=== PATIENT | male | born 1980 | race Caucasian/White ===

== ENCOUNTER 2020-06-02 14:09 | Emergency (ER) | payer SELFPAY ==
[~2020-06-02] VITALS: Ht 185.4 cm; Wt 113.4 kg
[2020-06-02 16:08] LABS: BASOPHILS ABSOLUTE AUTO 0.07 K/mm3 (0.00-0.23); BASOPHILS PERCENT AUTO 1 % (0-2); EOSINOPHILS ABSOLUTE AUTO 0.03 K/mm3 (0.00-0.68); EOSINOPHILS PERCENT AUTO 1 % (0-6); Hematocrit 42.7 % (37.0-53.0); IMMATURE GRAN ABSOLUTE AUTO 0.03 K/mm3 (0.00-0.10); IMMATURE GRAN PERCENT AUTO 1 % (0-1); LYMPHOCYTES ABSOLUTE AUTO 1.47 K/mm3 (0.84-5.20); LYMPHOCYTES PERCENT AUTO 27 % (21-46); MONOCYTES ABSOLUTE AUTO 0.52 K/mm3 (0.16-1.47); MONOCYTES PERCENT AUTO 10 % (4-13); Mean Corpuscular HGB Conc 35.1 g/dL (31.5-36.5); Mean Corpuscular Volume 97 fL (80-100); Mean Platelet Volume 9.9 fL (9.1-12.4); NEUTROPHILS ABSOLUTE AUTO 3.28 K/mm3 (1.96-9.15); NEUTROPHILS PERCENT AUTO 61 % (41-73); Platelet Count 225 K/mm3 (150-400); RDW Coefficient Variation 14.6 % (11.7-14.2); RDW Standard Deviation 52.8 fL (35.1-46.3); Red Blood Cell Count 4.41 M/mm3 (4.30-5.90)
[2020-06-02 16:37] LABS: Alanine Aminotransfer (ALT/SGP 53 U/L (12-78); Albumin, Blood 4.5 g/dL (3.4-5.0); Albumin/Globulin Ratio 1.1 (0.8-1.8); Alk Phos 78 U/L (50-136); Anion Gap 17 mmol/L (6-16); Aspartate Aminotrans (AST/SGOT 72 U/L (12-37); Bilirubin, Total 1.4 mg/dL (0.1-1.0); Blood Urea Nitrogen 9 mg/dL (8-24); Bun/Creatinine Ratio 12.3 (12.0-20.0); CO2, Blood 20 mmol/L (21-32); Calcium, Blood 9.5 mg/dL (8.5-10.1); Chloride, Blood 97 mmol/L (98-108); Creatinine, Blood 0.73 mg/dL (0.60-1.20); Globulin, Blood 4.1 g/dL (2.2-4.0); Glomerular Filtration Rate >60 (60-); Glucose, Blood 84 mg/dL (70-99); Sodium, Blood 134 mmol/L (136-145); Total Protein, Blood 8.6 g/dL (6.4-8.2)
[2020-06-02 19:41] LABS: Source, Urine Clean Catch
[2020-06-02 19:44] LABS: Appearance, Urine Clear (Clear); Bilirubin, Urine Neg (Neg); Blood, Urine 1+ (Neg); Color, Urine Yellow (P-Yellow); Glucose Qualitative, Urine Neg (Neg); Ketones, Urine 4+ (Neg); Leukocyte Esterase, Urine Neg (Neg); Nitrite, Urine Neg (Neg); Protein, Urine 2+ (Neg); Urobilinogen, Urine NORM (Normal)
[2020-06-02 20:02] LABS: Bacteria Few /hpf; Squamous Epithelial Cells Few /hpf (Few); White Blood Cells, Urine 0-2 /hpf (0-5)
[2020-06-02 20:03] LABS: Amorphous Light (0-Heavy); Mucus Light (0-Heavy); Uric Acid Crystals Few /hpf
[2020-06-07 01:09] LABS: CHLAMYDIA TRACHOMATIS, NAA Negative (Negative); NEISSERIA GONORRHOEAE, NAA Negative (Negative)
== END 2020-06-02 22:53 | disposition home or self-care (01) ==
LOC: ER 14:09
PROVIDERS: Physician Assistant
DX: K59.00 Constipation, unspecified (principal); R74.01 Elevation of levels of liver transaminase levels; Z79.899 Other long term (current) drug therapy
CPT/HCPCS: 36415; 74176; 76870; 80053; 81001; 83690; 83735; 84145; 85025; 93005; 93010; 96361; 96374; 96375; 99284-25; A9270; C9113; G0480; J1170; J2270; J2765; J7030

== ENCOUNTER 2020-06-12 08:34 | Emergency (ER) | payer OTHER ==
[~2020-06-12] VITALS: Ht 185.4 cm; Wt 113.4 kg
[2020-06-12 09:34] LABS: BASOPHILS ABSOLUTE AUTO 0.09 K/mm3 (0.00-0.23); BASOPHILS PERCENT AUTO 2 % (0-2); EOSINOPHILS ABSOLUTE AUTO 0.02 K/mm3 (0.00-0.68); EOSINOPHILS PERCENT AUTO 0 % (0-6); Hemoglobin 14.1 g/dL (13.5-17.5); IMMATURE GRAN ABSOLUTE AUTO 0.01 K/mm3 (0.00-0.10); IMMATURE GRAN PERCENT AUTO 0 % (0-1); LYMPHOCYTES ABSOLUTE AUTO 1.11 K/mm3 (0.84-5.20); LYMPHOCYTES PERCENT AUTO 24 % (21-46); MONOCYTES ABSOLUTE AUTO 0.71 K/mm3 (0.16-1.47); MONOCYTES PERCENT AUTO 16 % (4-13); Mean Corpuscular HGB 34.3 pg (26.0-34.0); Mean Corpuscular HGB Conc 35.3 g/dL (31.5-36.5); Mean Corpuscular Volume 97 fL (80-100); Mean Platelet Volume 10.2 fL (9.1-12.4); NEUTROPHILS ABSOLUTE AUTO 2.62 K/mm3 (1.96-9.15); NEUTROPHILS PERCENT AUTO 58 % (41-73); Platelet Count 195 K/mm3 (150-400); RDW Coefficient Variation 13.5 % (11.7-14.2); RDW Standard Deviation 48.7 fL (35.1-46.3); Red Blood Cell Count 4.11 M/mm3 (4.30-5.90); White Blood Cell Count 4.56 K/mm3 (4.00-11.30)
[2020-06-12 09:59] LABS: Alanine Aminotransfer (ALT/SGP 100 U/L (12-78); Albumin, Blood 3.8 g/dL (3.4-5.0); Alk Phos 79 U/L (50-136); Anion Gap 11 mmol/L (6-16); Aspartate Aminotrans (AST/SGOT 132 U/L (12-37); Blood Urea Nitrogen 3 mg/dL (8-24); Bun/Creatinine Ratio 4.1 (12.0-20.0); CO2, Blood 28 mmol/L (21-32); Calcium, Blood 8.8 mg/dL (8.5-10.1); Chloride, Blood 96 mmol/L (98-108); Creatinine, Blood 0.72 mg/dL (0.60-1.20); Globulin, Blood 3.7 g/dL (2.2-4.0); Glomerular Filtration Rate >60 (60-); Glucose, Blood 96 mg/dL (70-99); Potassium, Blood 2.9 mmol/L (3.5-5.5); Sodium, Blood 135 mmol/L (136-145); Total Protein, Blood 7.5 g/dL (6.4-8.2); Troponin I <0.015 ng/mL (0.000-0.040)
[2020-06-12 13:06] LABS: Source, Urine Clean Catch
[2020-06-12 13:13] LABS: Appearance, Urine Clear (Clear); Bilirubin, Urine Neg (Neg); Blood, Urine Neg (Neg); Color, Urine Yellow (P-Yellow); Glucose Qualitative, Urine Neg (Neg); Ketones, Urine 1+ (Neg); Leukocyte Esterase, Urine Neg (Neg); Nitrite, Urine Neg (Neg); Protein, Urine Neg (Neg); Specific Gravity, Urine 1.005 (1.003-1.022); Urobilinogen, Urine NORM (Normal)
[2020-06-12 13:25] LABS: U Amphetamine Screen Not Detected; U Barbituate Screen Not Detected; U Benzodiazapine Screen Not Detected; U Buprenorphine Screen Not Detected; U Cannabinoids Screen Not Detected; U Cocaine Screen Not Detected; U Methadone Screen Not Detected; U Methamphetamine Screen Not Detected; U Opiates Screen Not Detected; U Oxycodone Screen Not Detected; U Phencyclidine Screen Not Detected; U Propoxyphene Screen Not Detected
== END 2020-06-12 16:46 | disposition home or self-care (01) ==
LOC: ER 08:34
PROVIDERS: Physician Assistant
DX: E87.6 Hypokalemia (principal); K21.9 Gastro-esophageal reflux disease without esophagitis; F10.129 Alcohol abuse with intoxication, unspecified; F17.220 Nicotine dependence, chewing tobacco, uncomplicated; Z88.1 Allergy status to other antibiotic agents; Y90.8 Blood alcohol level of 240 mg/100 ml or more
CPT/HCPCS: 80053; 81003; 83735; 84484; 85025; 93005; 93010; 96365; 96366; 96375; 96376; 99284-25; A9270; G0480; J1885; J2060; J3480; J7030; J7120

== ENCOUNTER 2021-01-07 17:12 | Emergency (ER) | payer BC ==
[~2021-01-07] VITALS: Ht 185.4 cm; Wt 127.0 kg
[~2021-01-07 17:12] MED LIST: ALUM-MAG HYDROX30 ML PO; B-1100 M1 PO; CLON.1 PO; FOLI1 PO; Librium25 MG PO; PANT40 PO; POTA10T PO
[2021-01-07 17:45] LABS: BASOPHILS ABSOLUTE AUTO 0.09 K/mm3 (0.00-0.23); BASOPHILS PERCENT AUTO 1 % (0-2); EOSINOPHILS ABSOLUTE AUTO 0.11 K/mm3 (0.00-0.68); EOSINOPHILS PERCENT AUTO 2 % (0-6); Hematocrit 48.8 % (37.0-53.0); Hemoglobin 17.4 g/dL (13.5-17.5); IMMATURE GRAN ABSOLUTE AUTO 0.05 K/mm3 (0.00-0.10); IMMATURE GRAN PERCENT AUTO 1 % (0-1); LYMPHOCYTES ABSOLUTE AUTO 2.12 K/mm3 (0.84-5.20); LYMPHOCYTES PERCENT AUTO 31 % (21-46); MONOCYTES ABSOLUTE AUTO 0.87 K/mm3 (0.16-1.47); MONOCYTES PERCENT AUTO 13 % (4-13); Mean Corpuscular HGB 30.6 pg (26.0-34.0); Mean Corpuscular HGB Conc 35.7 g/dL (31.5-36.5); Mean Corpuscular Volume 86 fL (80-100); Mean Platelet Volume 10.9 fL (9.1-12.4); NEUTROPHILS ABSOLUTE AUTO 3.67 K/mm3 (1.96-9.15); NEUTROPHILS PERCENT AUTO 53 % (41-73); Platelet Count 198 K/mm3 (150-400); RDW Coefficient Variation 13.3 % (11.7-14.2); RDW Standard Deviation 41.8 fL (35.1-46.3); Red Blood Cell Count 5.68 M/mm3 (4.30-5.90); White Blood Cell Count 6.91 K/mm3 (4.00-11.30)
[2021-01-07 17:48] LABS: Source, Urine Clean Catch
[2021-01-07 17:58] LABS: Appearance, Urine Clear (Clear); Bilirubin, Urine Neg (Neg); Blood, Urine Neg (Neg); Color, Urine Yellow (P-Yellow); Glucose Qualitative, Urine Neg (Neg); Ketones, Urine Neg (Neg); Leukocyte Esterase, Urine 1+ (Neg); Nitrite, Urine Neg (Neg); Protein, Urine 2+ (Neg); Urobilinogen, Urine 2+ (Normal); pH, Urine 6.5 (5.0-8.0)
[2021-01-07 18:13] LABS: Red Blood Cells, Urine 0-2 /hpf (0-2)
[2021-01-07 18:14] LABS: Bacteria Few /hpf; Squamous Epithelial Cells Few /hpf (Few)
[2021-01-07 18:20] LABS: Alanine Aminotransfer (ALT/SGP 110 U/L (12-78); Albumin, Blood 4.1 g/dL (3.4-5.0); Albumin/Globulin Ratio 0.9 (0.8-1.8); Alk Phos 102 U/L (50-136); Anion Gap 12 mmol/L (6-16); Aspartate Aminotrans (AST/SGOT 91 U/L (12-37); Blood Urea Nitrogen 4 mg/dL (8-24); Bun/Creatinine Ratio 4.6 (12.0-20.0); CO2, Blood 23 mmol/L (21-32); Calcium, Blood 9.3 mg/dL (8.5-10.1); Chloride, Blood 98 mmol/L (98-108); Creatinine, Blood 0.87 mg/dL (0.60-1.20); Globulin, Blood 4.5 g/dL (2.2-4.0); Glomerular Filtration Rate >60 (60-); Glucose, Blood 181 mg/dL (70-99); Potassium, Blood 2.8 mmol/L (3.5-5.5); Sodium, Blood 133 mmol/L (136-145); Total Protein, Blood 8.6 g/dL (6.4-8.2)
[2021-01-07] MEDS ORDERED: CHLO25 PO (20:16)
== END 2021-01-07 20:25 | disposition home or self-care (01) ==
LOC: ER 17:12
PROVIDERS: Physician Assistant
DX: F10.139 Alcohol abuse with withdrawal, unspecified (principal); F17.220 Nicotine dependence, chewing tobacco, uncomplicated; E87.6 Hypokalemia; Z79.899 Other long term (current) drug therapy
CPT/HCPCS: 36415; 80053; 81001; 83690; 84100; 85025; 87086; 96361; 96374; 96375; 99282-25; A9270; G0480; J2060; J2405; J7030

== ENCOUNTER 2021-04-26 14:03 | Emergency (ER) | payer BC ==
[~2021-04-26] VITALS: Ht 185.4 cm; Wt 124.7 kg
[~2021-04-26 14:03] MED LIST changes: +CHLO25 PO
[2021-04-26 14:59] LABS: BASOPHILS ABSOLUTE AUTO 0.08 K/mm3 (0.00-0.23); BASOPHILS PERCENT AUTO 2 % (0-2); EOSINOPHILS ABSOLUTE AUTO 0.17 K/mm3 (0.00-0.68); EOSINOPHILS PERCENT AUTO 3 % (0-6); Hematocrit 48.8 % (37.0-53.0); Hemoglobin 17.3 g/dL (13.5-17.5); IMMATURE GRAN ABSOLUTE AUTO 0.01 K/mm3 (0.00-0.10); IMMATURE GRAN PERCENT AUTO 0 % (0-1); LYMPHOCYTES ABSOLUTE AUTO 2.38 K/mm3 (0.84-5.20); LYMPHOCYTES PERCENT AUTO 45 % (21-46); MONOCYTES ABSOLUTE AUTO 0.64 K/mm3 (0.16-1.47); MONOCYTES PERCENT AUTO 12 % (4-13); Mean Corpuscular HGB 32.6 pg (26.0-34.0); Mean Corpuscular HGB Conc 35.5 g/dL (31.5-36.5); Mean Corpuscular Volume 92 fL (80-100); NEUTROPHILS ABSOLUTE AUTO 1.98 K/mm3 (1.96-9.15); NEUTROPHILS PERCENT AUTO 38 % (41-73); Platelet Count 281 K/mm3 (150-400); RDW Standard Deviation 50.4 fL (35.1-46.3); White Blood Cell Count 5.26 K/mm3 (4.00-11.30)
[2021-04-26 15:18] LABS: Alanine Aminotransfer (ALT/SGP 60 U/L (12-78); Albumin, Blood 3.2 g/dL (3.4-5.0); Albumin/Globulin Ratio 0.7 (0.8-1.8); Alk Phos 95 U/L (50-136); Anion Gap 13 mmol/L (6-16); Aspartate Aminotrans (AST/SGOT 50 U/L (12-37); Bilirubin, Total 0.8 mg/dL (0.1-1.0); Blood Urea Nitrogen 12 mg/dL (8-24); Bun/Creatinine Ratio 11.8 (12.0-20.0); CO2, Blood 20 mmol/L (21-32); Calcium, Blood 8.7 mg/dL (8.5-10.1); Chloride, Blood 100 mmol/L (98-108); Creatinine, Blood 1.02 mg/dL (0.60-1.20); Ethanol (Alcohol), Blood, Med 206 mg/dL; Globulin, Blood 4.7 g/dL (2.2-4.0); Glomerular Filtration Rate >60 (60-); Glucose, Blood 113 mg/dL (70-99); Sodium, Blood 133 mmol/L (136-145); Total Protein, Blood 7.9 g/dL (6.4-8.2)
[2021-04-26] MEDS ORDERED: CHLO10 PO (16:54)
[2021-04-26] MEDS ORDERED: ONDA4ODT MM (16:55)
== END 2021-04-26 17:10 | disposition home or self-care (01) ==
LOC: ER 14:03
PROVIDERS: Physician Assistant
DX: R10.13 Epigastric pain (principal); R11.2 Nausea with vomiting, unspecified; F10.20 Alcohol dependence, uncomplicated; Y90.7 Blood alcohol level of 200-239 mg/100 ml; R05.9 Cough, unspecified; R00.0 Tachycardia, unspecified; F17.220 Nicotine dependence, chewing tobacco, uncomplicated; Z88.1 Allergy status to other antibiotic agents; Z79.899 Other long term (current) drug therapy
CPT/HCPCS: 36415; 80053; 83690; 85025; A9270; G0480; J1885; J2060; J2405; J7030

== ENCOUNTER 2021-12-10 12:55 | Emergency (ER) | payer BC ==
[~2021-12-10] VITALS: Ht 185.4 cm; Wt 127.0 kg
[~2021-12-10 12:55] MED LIST changes: +CHLO10 PO; +ONDA4ODT MM
[2021-12-10 15:30] LABS: BASOPHILS ABSOLUTE AUTO 0.05 K/mm3 (0.00-0.23); BASOPHILS PERCENT AUTO 1 % (0-2); EOSINOPHILS ABSOLUTE AUTO 0.08 K/mm3 (0.00-0.68); EOSINOPHILS PERCENT AUTO 2 % (0-6); Hematocrit 53.9 % (37.0-53.0); Hemoglobin 18.8 g/dL (13.5-17.5); IMMATURE GRAN ABSOLUTE AUTO 0.02 K/mm3 (0.00-0.10); IMMATURE GRAN PERCENT AUTO 0 % (0-1); LYMPHOCYTES ABSOLUTE AUTO 1.33 K/mm3 (0.84-5.20); LYMPHOCYTES PERCENT AUTO 24 % (21-46); MONOCYTES ABSOLUTE AUTO 0.66 K/mm3 (0.16-1.47); MONOCYTES PERCENT AUTO 12 % (4-13); Mean Corpuscular HGB 31.2 pg (26.0-34.0); Mean Corpuscular HGB Conc 34.9 g/dL (31.5-36.5); Mean Corpuscular Volume 90 fL (80-100); Mean Platelet Volume 11.2 fL (9.1-12.4); NEUTROPHILS ABSOLUTE AUTO 3.35 K/mm3 (1.96-9.15); NEUTROPHILS PERCENT AUTO 61 % (41-73); Platelet Count 145 K/mm3 (150-400); RDW Coefficient Variation 12.8 % (11.7-14.2); RDW Standard Deviation 42.1 fL (35.1-46.3); Red Blood Cell Count 6.02 M/mm3 (4.30-5.90); White Blood Cell Count 5.49 K/mm3 (4.00-11.30)
[2021-12-10 15:54] LABS: U Amphetamine Screen Not Detected; U Barbituate Screen Not Detected; U Benzodiazapine Screen Not Detected; U Buprenorphine Screen Not Detected; U Cannabinoids Screen Not Detected; U Cocaine Screen Not Detected; U Methadone Screen Not Detected; U Methamphetamine Screen Not Detected; U Opiates Screen Not Detected; U Oxycodone Screen Not Detected; U Phencyclidine Screen Not Detected; U Propoxyphene Screen Not Detected
[2021-12-10 18:52] LABS: Magnesium, Blood 2.3 mg/dL (1.6-2.4)
[2021-12-10 18:56] LABS: Albumin, Blood 3.9 g/dL (3.4-5.0); Albumin/Globulin Ratio 0.9 (0.8-1.8); Bun/Creatinine Ratio 13.1 (12.0-20.0); Calcium, Blood 9.4 mg/dL (8.5-10.1); Creatinine, Blood 0.76 mg/dL (0.60-1.20); Globulin, Blood 4.4 g/dL (2.2-4.0); Potassium, Blood 4.3 mmol/L (3.5-5.5); Total Protein, Blood 8.3 g/dL (6.4-8.2)
[2021-12-10] MEDS ORDERED: CHLO25 PO (20:46)
== END 2021-12-10 21:29 | disposition home or self-care (01) ==
LOC: ER 12:55
PROVIDERS: Physician Assistant
DX: F10.239 Alcohol dependence with withdrawal, unspecified (principal); F17.220 Nicotine dependence, chewing tobacco, uncomplicated; Z79.899 Other long term (current) drug therapy
CPT/HCPCS: 36415; 80053; 83735; 85025; A9270; G0480; J1885

== ENCOUNTER 2022-05-28 06:11 | Day surgery (SDC) | payer BC ==
[~2022-05-28] VITALS: Ht 185.4 cm; Wt 120.9 kg
[~2022-05-28 06:11] MED LIST changes: +BUSP10 PO; +MELO7.5 PO
--- NOTE | 2022-05-28 10:15 | NUR ---
ARRIVAL PATIENT ARRIVED TO UNIT FROM PACU VIA BED. S/P R AGNES. VSS ON RA, LUNGS CLEAR T/O. DENIES PAIN AT THIS TIME. AQUACEL TO RIGHT HIP, C/D/I. HAS FULL SENSATION TO BLE, GOOD CAP REFILL, DENIES N/T. ORIENTED TO ROOM & CALL LIGHT, IN REACH.
--- NOTE | 2022-05-28 18:57 | NUR ---
SHIFT SUMMARY POD 0 RIGHT AGNES. X1 AQUACEL, C/D/I. 1P ASSIST WITH FWW & GB TO BATHROOM & UP TO CHAIR. PAIN MANAGED PER EMAR. EATING, DRINKING, & VOIDING WELL. CIWA'S Q6, VERY LOW SCORES THIS SHIFT. CALLS APPROPRIATLEY, CALL LIGHT IN REACH.
--- NOTE | 2022-05-29 04:45 | NUR ---
SUMMARY NO NEW ISSUES NOTED. PT PAIN HAS BEEN MANAGED WELL. PT HAS BEEN AMBULATORY AND VOIDING WELL. PT CIWAS REMAIN UNREMARKABLE. PT CURRENTLY SLEEPING AND IN NO DISTRESS. CALL LIGHT IN REACH.
[2022-05-29 05:13] LABS: BASOPHILS ABSOLUTE AUTO 0.01 K/mm3 (0.00-0.23); BASOPHILS PERCENT AUTO 0 % (0-2); EOSINOPHILS ABSOLUTE AUTO 0.04 K/mm3 (0.00-0.68); EOSINOPHILS PERCENT AUTO 0 % (0-6); Hemoglobin 12.4 g/dL (13.5-17.5); IMMATURE GRAN ABSOLUTE AUTO 0.07 K/mm3 (0.00-0.10); IMMATURE GRAN PERCENT AUTO 1 % (0-1); LYMPHOCYTES ABSOLUTE AUTO 0.98 K/mm3 (0.84-5.20); LYMPHOCYTES PERCENT AUTO 11 % (21-46); MONOCYTES ABSOLUTE AUTO 0.85 K/mm3 (0.16-1.47); MONOCYTES PERCENT AUTO 9 % (4-13); Mean Corpuscular HGB 31.9 pg (26.0-34.0); Mean Corpuscular HGB Conc 34.4 g/dL (31.5-36.5); Mean Corpuscular Volume 93 fL (80-100); Mean Platelet Volume 10.5 fL (9.1-12.4); NEUTROPHILS PERCENT AUTO 79 % (41-73); NRBC ABSOLUTE 0.02 K/mm3 (0.00-0.02); NRBC Auto 0.2 /100 WBC (0.0-0.2); Platelet Count 174 K/mm3 (150-400); RDW Coefficient Variation 18.3 % (11.7-14.2); RDW Standard Deviation 60.6 fL (35.1-46.3); Red Blood Cell Count 3.89 M/mm3 (4.30-5.90); White Blood Cell Count 9.35 K/mm3 (4.00-11.30)
[2022-05-29 05:53] LABS: Bun/Creatinine Ratio 9.4 (12.0-20.0); Calcium, Blood 8.5 mg/dL (8.5-10.1); Creatinine, Blood 0.85 mg/dL (0.60-1.20); Potassium, Blood 4.1 mmol/L (3.5-5.5)
[2022-05-29] MEDS ORDERED: Percocet 5-3251 EACH PO (09:16)
[2022-05-29] MEDS ORDERED: ASPI81CH PO (09:16)
--- NOTE | 2022-05-29 10:35 | NUR ---
DISCHARGE SUMMARY PATIENT ALERT AND ORIENTED. TOLERATIND REGULAR DIET AND LIQUIDS. CIWA OF 1, TOLERATING BEERS WITH MEALS. PAIN CONTROLLED WITH PO PAIN MEDS. RIGHT HIP INCISION C/D/I WITH AQUACEL. CLEARED FOR DISCHARGE BY PHYSICAL THERAPY. AMBULATING IN ROOM WITH FWW. DISCHARGE ORDERS ON CHART. DISCHARGE INSTRUCTIONS GIVEN ON NEW MEDS, WOUND CARE, ACTIVITY, AND FOLLOW UP APPTS. IV DC'D WNL. PATIENT LEFT UNIT AT 1010 VIA WHEELCHAIR WITH FAMILY FOR HOME.
== END 2022-05-29 10:10 | disposition home or self-care (01) ==
LOC: ORSCMMR 06:11 → ORD 07:30 → SURS 10:30 → ORSCMMR 05-29 10:10
PROVIDERS: Orthopaedic Surgery
PROC: 0SR90JZ Replacement of Right Hip Joint with Synthetic Substitute, Open Approach (ICD-10-PCS; principal; 2022-05-28 07:30)
DX: M16.11 Unilateral primary osteoarthritis, right hip (principal); M87.9 Osteonecrosis, unspecified; Z87.891 Personal history of nicotine dependence; F41.9 Anxiety disorder, unspecified; Z79.899 Other long term (current) drug therapy; E66.9 Obesity, unspecified; Z68.35 Body mass index [BMI] 35.0-35.9, adult
CPT/HCPCS: 36415; 72170; 80048; 85025; 90686; 97110; 97116; 97162; 97530; A9270; C1776; J0171; J0690; J0735; J1100; J1885; J2250; J2370; J2405; J2704; J2795; J3010; J7120

== ENCOUNTER 2022-06-24 03:18 | Inpatient (IN) | payer BC ==
[~2022-06-24] VITALS: Ht 185.4 cm; Wt 132.9 kg
[~2022-06-24 03:18] MED LIST changes: +ASPI81CH PO; +Percocet 5-3251 EACH PO
[2022-06-24 04:42] LABS: BASOPHILS ABSOLUTE AUTO 0.03 K/mm3 (0.00-0.23); BASOPHILS PERCENT AUTO 1 % (0-2); EOSINOPHILS ABSOLUTE AUTO 0.02 K/mm3 (0.00-0.68); EOSINOPHILS PERCENT AUTO 1 % (0-6); Hematocrit 37.5 % (37.0-53.0); Hemoglobin 13.4 g/dL (13.5-17.5); IMMATURE GRAN ABSOLUTE AUTO 0.03 K/mm3 (0.00-0.10); IMMATURE GRAN PERCENT AUTO 1 % (0-1); LYMPHOCYTES ABSOLUTE AUTO 0.47 K/mm3 (0.84-5.20); LYMPHOCYTES PERCENT AUTO 11 % (21-46); MONOCYTES ABSOLUTE AUTO 0.54 K/mm3 (0.16-1.47); MONOCYTES PERCENT AUTO 12 % (4-13); Mean Corpuscular HGB 35.6 pg (26.0-34.0); Mean Corpuscular HGB Conc 35.7 g/dL (31.5-36.5); Mean Corpuscular Volume 100 fL (80-100); Mean Platelet Volume 9.7 fL (9.1-12.4); NEUTROPHILS ABSOLUTE AUTO 3.33 K/mm3 (1.96-9.15); NEUTROPHILS PERCENT AUTO 75 % (41-73); NRBC ABSOLUTE 0.02 K/mm3 (0.00-0.02); NRBC Auto 0.5 /100 WBC (0.0-0.2); Platelet Count 208 K/mm3 (150-400); RDW Coefficient Variation 17.1 % (11.7-14.2); RDW Standard Deviation 62.4 fL (35.1-46.3); Red Blood Cell Count 3.76 M/mm3 (4.30-5.90); White Blood Cell Count 4.42 K/mm3 (4.00-11.30)
[2022-06-24 05:00] LABS: International Normalized Ratio 1.06; Prothrombin Time Results 11.1 Sec (9.7-11.5)
[2022-06-24 05:07] LABS: Albumin, Blood 2.9 g/dL (3.4-5.0); Albumin/Globulin Ratio 0.7 (0.8-1.8); Calcium, Blood 8.4 mg/dL (8.5-10.1); Creatinine, Blood 0.66 mg/dL (0.60-1.20); Globulin, Blood 4.2 g/dL (2.2-4.0); Potassium, Blood 3.2 mmol/L (3.5-5.5); Total Protein, Blood 7.1 g/dL (6.4-8.2)
[2022-06-24 05:58] LABS: Influenza B, PCR NEGATIVE (NEGATIVE); Resp Syncytial Virus, PCR NEGATIVE (NEGATIVE); SARS-Cov-2 (COVID-19) PCR, MMC NEGATIVE (NEGATIVE)
[2022-06-24 06:24] LABS: Influenza A, PCR POSITIVE (NEGATIVE)
--- NOTE | 2022-06-24 16:04 | NUR ---
ADMIT TO PCU. PATIENT ALERT AND ORIENTED X4. ABLE TO STAND AND TRANSFER. SOME RIGHT SIDED WEAKNESS, USING CANE AT BASELINE. RECENT RIGHT HIP REPLACEMENT ON 05/29/22. RIGHT ANTERIOR HIP INCISION HEALING WNL. TRACE EDEMA AT SITE. DENIES N/T. PERRLA. SOME ANXIETY. ON ROOM AIR SATING 100%. DENIES SOB. NO COUGH NOTED. INTERMIT SORE THROAT. LUNGS SOUNDING CLEAR AND DIM. TELE SHOWING SINUS TACH WITH HR 120-130'S. BP SLIGHTLY ELEVATED. PPP. DENIES CHEST PAIN/PRESSURE. DR. ROCKWELL CALLED ON HR. [facility] PROTOCOL CLONIDINE ORDERS IN PLACE FOR HR OVER 120. ADMINISTERED AT THIS TIME. PO DIET ORDERS IN PLACE. DENIES ABDOMINAL PAIN/NAUSEA. DRINKING WATER AT THIS TIME. MED REC COMPLETE, PATIENT STATES HE DOES NOT TAKE BUSPAR SCHEDULED AND THAT IT DOES NOT REALLY WORK FOR HIM. HE ESTIMATES TAKING IT WEEKLY. BED ALARM IN PLACE FOR SAFETY. USING URINAL TO VOID. POTASSIUM CONTINUES TO INFUSE.
--- NOTE | 2022-06-24 18:05 | NUR ---
SHIFT SUMMARY: SEE PREVIOUS NOTES FOR UPDATES. HR TRENDING DOWN. AVERAGING 110'S. CIWA SCORE 2. FAMILY AT BEDSIDE VISITING. 2ND IV PLACED. EATING WNL. WILL CONTINUE TO MONITOR AND REPORT OFF TO ONCOMING RN.
--- NOTE | 2022-06-25 04:00 | NUR ---
PT HR IN THE 120'S AND INCREASING TO THE 140'S WITH ANY MOVEMENT. PT BP ALSO ELEVATED THROUGHOUT THE SHIFT. NO IMPROVEMENT IN HR OR BP WITH PRN CLONIDINE. DR HERNANDES NOTIFIED. PER DR HERNANDES, LIKELY DUE TO WITHDRAW, GIVE PT PRN LIBRIUM AND IF THERE IS NO IMPROVEMENT SEEN GIVE PRN ATIVAN. CONTACT DR HERNANDES IF NO IMPROVEMENT WITH EITHER MEDICATION.
--- NOTE | 2022-06-25 05:12 | NUR ---
SHIFT SUMMARY: NO ACUTE CHANGES THIS SHIFT. PT HR DOWN TO THE 100'S AT THIS TIME PT C/O HEADACHE TOWARD END OF SHIFT THAT IS RESOLVING WITH TYLENOL. PT C/O SORE THROAT AND STATES IT FEELS LIKE IT IS BECAUSE OF THE COUGH. PT HAVING INCONSISTENT PRODUCTIVE COUGH. SPUTUM WAS GREEN AND THICK, BUT MINIMAL IN AMOUNT. PT LUNGS CLEAR T/O. PT TEMP DOWN FROM 100.O TO 98.2. PT REMAINS ALERT AND ORIENTED. PLEASANT AND COOPERATIVE WITH STAFF. WILL CONTINUE TO MONITOR PT AND REPORT TO ONCOMING RN.
[2022-06-25 05:53] LABS: BASOPHILS ABSOLUTE AUTO 0.03 K/mm3 (0.00-0.23); BASOPHILS PERCENT AUTO 1 % (0-2); EOSINOPHILS ABSOLUTE AUTO 0.02 K/mm3 (0.00-0.68); EOSINOPHILS PERCENT AUTO 1 % (0-6); Hematocrit 35.2 % (37.0-53.0); IMMATURE GRAN ABSOLUTE AUTO 0.02 K/mm3 (0.00-0.10); IMMATURE GRAN PERCENT AUTO 1 % (0-1); LYMPHOCYTES ABSOLUTE AUTO 1.05 K/mm3 (0.84-5.20); LYMPHOCYTES PERCENT AUTO 28 % (21-46); MONOCYTES ABSOLUTE AUTO 0.47 K/mm3 (0.16-1.47); MONOCYTES PERCENT AUTO 13 % (4-13); Mean Corpuscular HGB 35.3 pg (26.0-34.0); Mean Corpuscular HGB Conc 34.1 g/dL (31.5-36.5); Mean Corpuscular Volume 104 fL (80-100); Mean Platelet Volume 10.2 fL (9.1-12.4); NEUTROPHILS ABSOLUTE AUTO 2.14 K/mm3 (1.96-9.15); NEUTROPHILS PERCENT AUTO 57 % (41-73); NRBC ABSOLUTE 0.04 K/mm3 (0.00-0.02); NRBC Auto 1.1 /100 WBC (0.0-0.2); Platelet Count 138 K/mm3 (150-400); White Blood Cell Count 3.73 K/mm3 (4.00-11.30)
[2022-06-25 06:19] LABS: Albumin, Blood 2.4 g/dL (3.4-5.0); Albumin/Globulin Ratio 0.7 (0.8-1.8); Bilirubin, Total 1.2 mg/dL (0.1-1.0); Bun/Creatinine Ratio 7.5 (12.0-20.0); Calcium, Blood 8.2 mg/dL (8.5-10.1); Creatinine, Blood 0.8 mg/dL (0.60-1.20); Globulin, Blood 3.5 g/dL (2.2-4.0); Potassium, Blood 3.1 mmol/L (3.5-5.5); Total Protein, Blood 5.9 g/dL (6.4-8.2)
--- NOTE | 2022-06-25 07:55 | NUR ---
Am note Pt alert, oriented x4; calm and cooperative with care, anxious at times. Pt reports headache this am, will medicated per emar.Ciwa 4. Pt denies chest pain/pressure, sob, nausea, dizziness and numb/tingling. Tele sinus tach 110-130's, bp elevated. Spo2 >90% on ra, breathing even and unlabored, cough noted, pt states nonproductive at this time. Abd mild distended, soft nontender. Edema noted to ble. Afebrile, other vss. No other acute changes noted. Will continue to monitor until report given to oncoming rn.
[2022-06-25] MEDS ORDERED: ACET500 PO (10:26)
[2022-06-25] MEDS ORDERED: AZIT500 PO (10:31)
[2022-06-25] MEDS ORDERED: MULVITA PO (10:32)
[2022-06-25] MEDS ORDERED: CHLO25 PO (10:32)
[2022-06-25] MEDS ORDERED: GABA300 PO (10:32)
[2022-06-25] MEDS ORDERED: B-1100 M1 PO (10:33)
[2022-06-25] MEDS ORDERED: METO50 PO (10:33)
[2022-06-25] MEDS ORDERED: FOLI1 PO (10:34)
[2022-06-25] MEDS ORDERED: GUAI600T33 PO (10:35)
[2022-06-25] MEDS ORDERED: NASAL SPRAY88 ML (10:37)
--- NOTE | 2022-06-25 12:27 | NUR ---
Discharge Summary Pt alert, oriented x4; calm and cooperative with care. Pt resting in bed. Up to bathroom with cane sba. CIWA under 8 t/o shift. Pt reports headache, medicated per emar. No other acute changes. Pt and mother edudcated on discharge instructions, follow up appointments and medications. Prescriptions faxed to [facility] and two physical prescription given to patient. Pt left via wheelchair at 1206.
== END 2022-06-25 12:13 | disposition home or self-care (01) | DRG 897 ==
LOC: ER 03:18 → PCU 06:25 → ERHOLD 06:25 → PCU 15:07
PROVIDERS: Emergency Medicine; ADMIT Internal Medicine
PROC: HZ2ZZZZ Detoxification Services for Substance Abuse Treatment (ICD-10-PCS; principal; 2022-06-24)
DX: F10.239 Alcohol dependence with withdrawal, unspecified (principal); J10.1 Influenza due to other identified influenza virus with other respiratory manifestations; Z20.822 Contact with and (suspected) exposure to COVID-19; F32.A Depression, unspecified; E87.6 Hypokalemia; Z96.641 Presence of right artificial hip joint; Z88.8 Allergy status to other drugs, medicaments and biological substances; Z79.82 Long term (current) use of aspirin; Z79.899 Other long term (current) drug therapy
CPT/HCPCS: 0241U; 36415; 80053; 83690; 83735; 85025; 85610; 96372-59; 96374; 96375; 96376; 99285-25; A9270; C9113; J1650; J2060; J2405; J3411; J3480; J7030; J7050